=== PATIENT | female | born 1995 | race Caucasian/White ===

== ENCOUNTER 2021-08-17 21:23 | Emergency (ER) | payer OTHER ==
[~2021-08-17 21:23] MED LIST: MOTRIN600 MG PO
[2021-08-17 23:01] LABS: BASOPHIL 1.1 % (0-2); EOSINOPHIL 1.4 % (0-5); HCT 39.9 % (37.0-47.0); HGB 13.5 g/dl (12.5-16.0); LYMPHOCYTE 26.9 % (15-48); MCH 30.4 pg (25.0-31.0); MCHC 33.8 g/dL (32.0-36.0); MCV 89.9 fL (78.0-100.0); MONOCYTE 10.2 % (0-12); MPV 10.3 fL (6.0-9.5); NEUTROPHIL 60.1 % (41-80); NRBC 0; PLT 314 K/uL (150-400); RBC 4.44 M/uL (4.20-5.40); RDW 13.2 % (11.5-14.0); WBC 9.4 K/uL (4.0-10.5)
[2021-08-17 23:05] LABS: INR 0.98 (0.9-1.2); PROTHROMBIN TIME 12.4 SECONDS (11.8-13.4); PTT 30.8 SECONDS (24.4-34.7)
[2021-08-17 23:14] LABS: ALBUMIN 3.9 g/dL (3.4-5.0); BILIRUBIN - TOTAL 0.2 mg/dL (0.2-1.0); BUN/CREAT RATIO (CALC) 15.3 RATIO; CREATININE 0.85 mg/dL (0.51-0.95); GLOBULIN (CALCULATION) 3.5 g/dL; POTASSIUM 3.9 mmol/L (3.5-5.1); TOTAL PROTEIN 7.4 g/dL (6.4-8.2)
[2021-08-17 23:22] LABS: BILIRUBIN NEGATIVE (NEGATIVE); BLOOD NEGATIVE Ery/uL (NEGATIVE); CLARITY CLEAR (CLEAR); COLOR STRAW (YELLOW); GLUCOSE (U) NORMAL (NORMAL); LEUKOCYTES NEGATIVE Leu/uL (NEGATIVE); NITRITE NEGATIVE (NEGATIVE); PROTEIN NEGATIVE (NEGATIVE); UROBILINOGEN 0.2 mg/dL (0.2-1.0)
[2021-08-17 23:23] LABS: HCG (URINE) SCREEN NEGATIVE (NEGATIVE)
[2021-08-18] MEDS ORDERED: PERCOCET 5-3251 EACH PO (00:09)
[2021-08-18] MEDS ORDERED: ONDANSETRON ODT4 MG SL (00:09)
== END 2021-08-18 00:25 | disposition home or self-care (01) ==
LOC: FER 21:23
PROVIDERS: Emergency Medicine
DX: N83.02 Follicular cyst of left ovary (principal); N83.01 Follicular cyst of right ovary; F17.290 Nicotine dependence, other tobacco product, uncomplicated; Z88.1 Allergy status to other antibiotic agents
CPT/HCPCS: 36415; 76856; 80053; 81003; 84703; 85025; 85610; 85730; J1170; J1885; J2405